=== PATIENT | female | born 1975 ===

== ENCOUNTER 2017-09-17 01:45 | Emergency (ER) | payer MEDICARE, OTHER ==
[2017-09-17 01:46] VITALS: BMI 46.4
[2017-09-17 03:15] LABS: SQUAMOUS EPITHIAL 1 /hpf (0-5); URINE BILIRUBIN NEGATIVE (NEGATIVE); URINE CLARITY Clear (Clear); URINE COLOR Yellow (YELLOW); URINE GLUCOSE (UA) NORMAL (Normal); URINE LEUKOCYTE ESTERASE NEG Leu/uL (Negative); URINE NITRATE NEGATIVE (NEGATIVE); URINE PROTEIN NEGATIVE (NEGATIVE); URINE UROBILINOGEN NORMAL mg/dL (0.2-1.0)
[2017-09-17] MEDS ORDERED: Aluminum Hydroxide/Magnesium Hydroxide Susp (30 mL) PO STA (03:16)
[2017-09-17] MEDS ORDERED: Sodium Chloride 0.9% 1,000 ML IV STA (03:18)
[2017-09-17 03:28] LABS: HCG,QUALITATIVE URINE NEGATIVE (NEGATIVE)
[2017-09-17 03:29] LABS: URINE BLOOD NEGATIVE (NEGATIVE)
[2017-09-17] MEDS ORDERED: Aluminum Hydroxide/Magnesium Hydroxide Susp (30 mL) ONE (03:32)
[2017-09-17 03:36] LABS: BASO % 0.5 % (0.0-2.0); EOS % 0.4 % (0.0-4.0); HEMOGLOBIN 12.3 g/dL (11.0-16.0); LYMPH # 2.4 K/uL (1.0-4.3); LYMPH % 31.7 % (20.0-40.0); MEAN CELL VOLUME 88.5 fL (81.0-99.0); MEAN CORPUSCULAR HEMOGLOBIN 29.9 pg (27.0-31.0); MEAN CORPUSCULAR HGB CONC 33.8 g/dL (33.0-37.0); MEAN PLATELET VOLUME 7.9 fL (7.2-11.7); MONO # 0.7 K/uL (0.0-0.8); MONO % 9.4 % (0.0-10.0); NEUT # 4.3 K/uL (1.8-7.0); RBC 4.1 Mil/uL (3.80-5.20); RED CELL DISTRIBUTION WIDTH 12.8 % (11.5-14.5); WHITE BLOOD COUNT 7.5 K/uL (4.8-10.8)
--- NOTE | 2017-09-17 04:54 | C.PDOC ---
History Of Present Illness 42 year old female presents to the ED for evaluation of epigastric pain, decreased appetite, nausea, and general malaise x3 days. Patient states that she has been ill with flu and not eating much since onset of illness. She also complains of eye itchiness and redness. She denies fever or URI symptoms. Time Seen by Provider: 09/17/17 02:50 Chief Complaint (Nursing): Abdominal Pain History Per: Patient History/Exam Limitations: no limitations Onset/Duration Of Symptoms: Days Current Symptoms Are (Timing): Still Present Location Of Pain/Discomfort: Epigastric Associated Symptoms: Nausea, Loss Of Appetite. denies: Fever Past Medical History Reviewed: Historical Data, Nursing Documentation, Vital Signs Vital Signs: Last Vital Signs Temp 98.2 F 09/17/17 02:06 Pulse 76 09/17/17 02:06 Resp 20 09/17/17 02:06 BP 129/89 09/17/17 02:06 Pulse Ox 97 09/17/17 04:58 - Medical History PMH: Asthma, Bronchitis, HTN Surgical History: Cholecystectomy - [facility] Procedures CLOSED ENDOSCOPIC BIOPSY OF LARGE INTESTINE (02/01/13) INJECT/INFUSE NEC (10/09/13) NEBULIZER THERAPY (10/15/13) VACCINATION NEC (02/01/13) Family History: States: Unknown Family Hx - Social History Hx Tobacco Use: No Hx Alcohol Use: No Hx Substance Use: No - Immunization History Hx Tetanus Toxoid Vaccination: Yes Hx Influenza Vaccination: Yes Hx Pneumococcal Vaccination: Yes Review Of Systems Constitutional: Negative for: Fever, Chills Eyes: Positive for: Redness, Other (itchiness) ENT: Negative for: Ear Pain, Throat Pain Cardiovascular: Negative for: Chest Pain Respiratory: Negative for: Cough, Shortness of Breath Gastrointestinal: Positive for: Nausea, Abdominal Pain, Other (Decreased appetite ). Negative for: Vomiting, Diarrhea Genitourinary: Negative for: Dysuria, Frequency Skin: Negative for: Rash Neurological: Negative for: Headache Physical Exam - Physical Exam Appears: Well, Non-toxic, No Acute Distress Skin: Normal Color, Warm, Dry Head: Atraumatic, Normacephalic Eye(s): bilateral: Normal Inspection, PERRL, EOMI Oral Mucosa: Moist Neck: Normal ROM, Supple Chest: Symmetrical Cardiovascular: Rhythm Regular (Rate Regular ) Respiratory: Normal Breath Sounds, No Rales, No Rhonchi, No Wheezing Gastrointestinal/Abdominal: Soft, Tenderness (epigatric ), No Distention Back: Normal Inspection Extremity: Normal ROM, No Deformity Neurological/Psych: Oriented x3, Normal Speech ED Course And Treatment - Laboratory Results Result Diagrams: 09/17/17 03:32 0218 03:32 O2 Sat by Pulse Oximetry: 97 Pulse Ox Interpretation: Normal Progress Note: IV fluids ,meds and labs ordered. Pending re-eval. Pt has been comfortably sleeping in ED in NAD, labd reviewed wnl. Pt advised pmd f/u,po hydration and rx for antacids. Return precautions d/w pt Disposition Counseled Patient/Family Regarding: Diagnosis, Need For Followup, Rx Given - Disposition Referrals: [facility] [Outside] Disposition Time: 06:43 Condition: STABLE Additional Instructions: Increase fluids Take meds as directed Tylenol for pain Follow up in clinic Return to ER if worse Prescriptions: Aluminum Hydroxide/Magnesium H [Maalox 30 ml] 30 ml PO TID #120 ml Famotidine [Pepcid] 20 mg PO DAILY #20 tab Instructions: Gastritis Forms: [employer] (Nicaraguan) Print Language: SETSWANA - Clinical Impression Clinical Impression: Gastritis, Viral illness - Scribe Statement The provider has reviewed the documentation as recorded by the Scribe (Lewis Blue) Provider Attestation: All medical record entries made by the Scribe were at my direction and personally dictated by me. I have reviewed the chart and agree that the record accurately reflects my personal performance of the history, physical exam, medical decision making, and the department course for this patient. I have also personally directed, reviewed, and agree with the discharge instructions and disposition.
[2017-09-17 06:20] LABS: BLOOD UREA NITROGEN 7 mg/dL (7-17); GFR AFRICAN-AMERICAN > 60; GFR NON-AFRICAN AMERICAN > 60
[2017-09-17 06:21] LABS: ALB/GLOB RATIO 1.1 (1.0-2.1); ALBUMIN 3.7 g/dL (3.5-5.0); ALT/SGPT 25 U/L (9-52); AST/SGOT 26 U/L (14-36); CALCIUM 8.4 mg/dl (8.6-10.4)
[2017-09-17 06:22] LABS: LIPASE 38 U/L (23-300)
[2017-09-17 06:51] VITALS: BP 125/84; PULSE 81; RESP 16; TEMP 98.5; O2SAT 100
== END 2017-09-17 07:15 | disposition home or self-care (01) ==
LOC: C.ER 01:45
DX: K29.70 Gastritis, unspecified, without bleeding (principal); B34.9 Viral infection, unspecified; I10 Essential (primary) hypertension
CPT/HCPCS: 80053; 81001; 83690; 84703; 85025; 96361; 96374; 96375; 99285; J2405; J7040

== ENCOUNTER 2017-09-18 11:10 | Emergency (ER) | payer MEDICARE, OTHER ==
[2017-09-18 11:11] VITALS: BMI 46.4
[2017-09-18 11:38] VITALS: O2SAT 98
--- NOTE | 2017-09-18 13:30 | C.PDOC ---
History Of Present Illness 42yo female with history of anxiety and panic attacks, presents to ER today after she had a panic attack. Patient states she was on a course of Buproprion but has not taken it for a couple days as she has just moved here from [place]. Patient states she has a follow up with [facility] on Thursday. She denies any SI, HI and offers no medical complaints. Time Seen by Provider: 09/18/17 13:05 Chief Complaint (Nursing): Psychiatric Evaluation History Per: Patient History/Exam Limitations: no limitations Onset/Duration Of Symptoms: Days Current Symptoms Are (Timing): Still Present Associated Symptoms: Anxiety Past Medical History Reviewed: Historical Data, Nursing Documentation, Vital Signs Vital Signs: Last Vital Signs Temp 98.4 F 09/18/17 14:34 Pulse 70 09/18/17 14:34 Resp 20 09/18/17 14:34 BP 120/80 09/18/17 14:34 Pulse Ox 98 09/18/17 14:34 - Medical History PMH: Anxiety, Asthma, Bronchitis, HTN Surgical History: Cholecystectomy - [facility] Procedures CLOSED ENDOSCOPIC BIOPSY OF LARGE INTESTINE (02/01/13) INJECT/INFUSE NEC (10/09/13) NEBULIZER THERAPY (10/15/13) VACCINATION NEC (02/01/13) Family History: States: Unknown Family Hx - Social History Hx Tobacco Use: No Hx Alcohol Use: No Hx Substance Use: No - Immunization History Hx Tetanus Toxoid Vaccination: No Hx Influenza Vaccination: Yes Hx Pneumococcal Vaccination: Yes Review Of Systems Except As Marked, All Systems Reviewed And Found Negative. Psych: Positive for: Anxiety. Negative for: Suicidal ideation Physical Exam - Physical Exam Appears: Non-toxic Skin: Normal Color, No Rash Head: Normacephalic Eye(s): bilateral: Normal Inspection Oral Mucosa: Moist Neck: Normal ROM, Supple Chest: Symmetrical Cardiovascular: Rhythm Regular, No Friction Rub, No Murmur Respiratory: Normal Breath Sounds, No Rales, No Rhonchi, No Wheezing Back: Normal Inspection Extremity: Normal ROM, No Tenderness, No Swelling Neurological/Psych: Oriented x3, Normal Speech, Normal Cognition Gait: Steady ED Course And Treatment O2 Sat by Pulse Oximetry: 98 (RA) Pulse Ox Interpretation: Normal Medical Decision Making Medical Decision Making: Plan: -- Xanax 0.5 mg PO Patient is requesting medications for 2 days. Patient was seen by crisis and they agree patient can be discharged for outpatient. Disposition - Disposition Referrals: [facility] [Outside] Disposition: HOME/ ROUTINE Disposition Time: 14:14 Condition: GOOD Additional Instructions: Follow up with the [facility] today without fail! return if worsened,. 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 - Scribe Statement The provider has reviewed the documentation as recorded by the Scribe (Gladis Driver) Provider Attestation: All medical record entries made by the Scribe were at my direction and personally dictated by me. I have reviewed the chart and agree that the record accurately reflects my personal performance of the history, physical exam, medical decision making, and the department course for this patient. I have also personally directed, reviewed, and agree with the discharge instructions and disposition.
[2017-09-18 14:35] VITALS: BP 120/80; PULSE 70; RESP 20; TEMP 98.4
== END 2017-09-18 14:49 | disposition home or self-care (01) ==
LOC: C.ER 11:10
DX: F41.0 Panic disorder [episodic paroxysmal anxiety] (principal)